=== PATIENT | female | born 1940 | race Caucasian/White ===

== ENCOUNTER → 2016-12-25 | Outpatient (CLI) | payer MEDICARE ==
[~2016-12-25] MED LIST: ASA CHILDREN'S81 MG PO; ASCORBIC ACID500 MG PO; COLACE-DPS100 MG PO; COZAAR DPS50 MG PO; FEOSOL-DPS325 MG PO; GLUCOSAMINE &1 EACH PO; LACTAID FAS9000 UNIT PO; NEURONTIN DPS100 MG PO; NORVASC5 MG PO; SENOKOT S1 TAB PO; TOPROL XL DPS50 MG PO; TYLENOL DPS325 MG PO; ULTRAM DPS50 MG PO; VITAMIN D1000 UNI1 PO; ZOCOR DPS10 MG PO; ZOLOFT DPS50 MG PO
== END | disposition home or self-care (01) ==
LOC: RAD.S 15:17
DX: I67.89 Other cerebrovascular disease (principal)

== ENCOUNTER 2016-12-31 14:19 | Inpatient (IN) | payer MEDICARE ==
[~2016-12-31] VITALS: Ht 157.5 cm; Wt 49.8 kg
--- NOTE | 2017-01-05 21:32 | NUR ---
DAY SHIFT SUMMARY: SEE OT NOTES & FIM FOR GROOMING, SHOWER, DRESSING AND SHOWER TRANSFER. MOD ASSIST OF 1 FOR TOILETING; MIN ASSIST OF 1 FOR ALL TRANSFERS EXCEPT SHOWER; MIN ASSIST OF 1 FOR AMBULATION W/ WALKER.
--- NOTE | 2017-01-14 18:14 | NUR ---
DAY SHIFT SUMMARY 01/13 AND : EATING IS SLOW RT BRACE AND OCCASIONALLY SWALLOWING DIFFICULTY; GROOMING IS SUPERVISED; MIN ASSIST FOR DRESSING, BED/CHAIR TRANSFERS, AMBULATION WITH WALKER; PT USES DEVICE FOR TOILETING AND TOILET TRANSFERS; MIN PROMPTING IN COMPREHENSION, EXPRESSION AND MEMORY; IS ON ANTIDEPRESSANT TO ASSIST SOCIAL INTERACTION; MINIMAL CUING FOR PROBLEM SOLVING
[2017-01-18] MEDS ORDERED: ZOLOFT DPS50 MG PO (12:48)
[2017-01-18] MEDS ORDERED: GLUCOSAMINE &1 EACH PO (12:49)
[2017-01-18] MEDS ORDERED: NORVASC5 MG PO (12:49)
[2017-01-18] MEDS ORDERED: ZOCOR DPS10 MG PO (12:49)
[2017-01-18] MEDS ORDERED: COZAAR DPS50 MG PO (12:49)
[2017-01-18] MEDS ORDERED: ASA CHILDREN'S81 MG PO (12:49)
[2017-01-18] MEDS ORDERED: VITAMIN D1000 UNI1 PO (12:50)
[2017-01-18] MEDS ORDERED: LACTAID FAS9000 UNIT PO (12:50)
[2017-01-18] MEDS ORDERED: FEOSOL-DPS325 MG PO (12:50)
[2017-01-18] MEDS ORDERED: TOPROL XL DPS50 MG PO (12:50)
[2017-01-18] MEDS ORDERED: ASCORBIC ACID500 MG PO (12:51)
[2017-01-18] MEDS ORDERED: NEURONTIN DPS100 MG PO (12:51)
[2017-01-18] MEDS ORDERED: TYLENOL DPS325 MG PO (12:52)
[2017-01-18] MEDS ORDERED: ULTRAM DPS50 MG PO (12:52)
[2017-01-18] MEDS ORDERED: SENOKOT S1 TAB PO (12:52)
[2017-01-18] MEDS ORDERED: COLACE-DPS100 MG PO (12:53)
--- NOTE | 2017-02-16 11:57 | DS ---
ADMIT: 12/31/2016 RM/LOC: [address] [facility] MR#: [id number] [facility] [address] [place], [place] [address] HONORIO WYNNE [address] [place] [address] General Discharge Summary SEX: F AGE: 76 : 1940 ADMISSION DATE: 12/31/2016 DISCHARGE DATE: 01/17/2017 DISCHARGE DIAGNOSES: Spinal cord dysfunction, nontraumatic 041211, quadriplegia, incomplete C1-4; M47.12, other spondylosis with myelopathy, cervical region, onset 12/27/2016, comorbid conditions, per initial H and P. Other diagnoses per hospital course below. HOSPITAL COURSE: Please see my initial H and P for details prior to transfer to the IRU. 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 [employer] shunt status in the past, severe postop pain. Postvoid residuals were within normal limits. Pain and bowel regimen was adjusted. Percocet and Valium were discontinued. OxyIR used for pain. Zoloft increased to 100 mg for pain and for better depression control. Zocor adjusted. Lab was monitored regularly. Mechanical means for DVT prophylaxis. Gabapentin used for pain as well, higher dose at night to help with insomnia. OxyIR and gabapentin adjusted for pain. Nucynta added to help with pain and to limit side effects. Zoloft decreased to 50 mg due to side effects. Lactate given for lactose intolerance. Lovenox started due to the difficulty she was having ambulating. Dietitian followed up optimize nutrition. Pharmacy followed to optimize medication management. Reglan and Zofran were given for nausea and vomiting. Postvoid residuals increased to 280, but then came down to 195 and 87. Reglan discontinued. Meclizine given for vertigo, dizziness, nausea, vomiting, history of Meniere's disease. UA with micro, no culture obtained due to leukocytosis. Feosol and vitamin C given for iron deficiency. PRNs given for constipation. Neurontin discontinued due to concern of side effects. Nucynta increased for pain control. Suppository after supper with warm water enema. Senokot S for constipation. Lovenox discontinued. She became ambulating again a good distance. Gabapentin restarted to help with pain control. Nucynta switched back to OxyIR, she was having no side effects and they resolved, ambulated regularly. Vitamin D replaced as it was deficient. Norvasc decreased to 5 mg. Blood pressure was nonspecific low blood pressure readings. Flonase for allergic rhinitis. Antivert discontinued p.r.n. again given for bowel movement. OxyIR switched to tramadol for pain control. Zoloft attempted increasing to 100 mg again for depression, melatonin for insomnia. Senokot S for constipation. [place]un[place] for ADMIT: 12/31/2016 RM/LOC: [address] [facility] MR#: [id number] [address] [id number] HONORIO WYNNE [address] [place] [address] General Discharge Summary SEX: F AGE: 76 : 1940 nausea and vomiting. Tylenol adjusted to give with tramadol. Senokot S for constipation. The patient was medically stable at the time of discharge. Please see IRU interdisciplinary discharge summary for details regarding progress in therapy. DISCHARGE DISPOSITION: Home with her with [facility] including RN, PT, OT, home health aide. Obtained a front wheeled walker. DISCHARGE MEDICATIONS: Please see discharge med rec. 1. Continue Feosol and vitamin C for 1 month. 2. She was given #60 of Ultram, two refills. FOLLOWUP: Dr. Luis Eduardo Watts on February 01, Dr. Sigala as regularly scheduled. Alok Smith MD/ [facility] JOB #: [id number] CC:
== END 2017-01-17 12:10 | disposition home health service (06) | DRG 560 ==
LOC: 6IRU 14:19
PROVIDERS: ADMIT Physical Medicine & Rehabilitation
PROC: F07Z9ZZ Gait Training/Functional Ambulation Treatment (ICD-10-PCS; principal; 2016-12-31)
PROC: F06ZDZZ Swallowing Dysfunction Treatment (ICD-10-PCS; principal; 2016-12-31)
PROC: F07Z5FZ Bed Mobility Treatment using Assistive, Adaptive, Supportive or Protective Equipment (ICD-10-PCS; principal; 2016-12-31)
PROC: F08Z0FZ Bathing/Showering Techniques Treatment using Assistive, Adaptive, Supportive or Protective Equipment (ICD-10-PCS; principal; 2016-12-31)
PROC: F07Z8FZ Transfer Training Treatment using Assistive, Adaptive, Supportive or Protective Equipment (ICD-10-PCS; principal; 2016-12-31)
PROC: F08Z2FZ Grooming/Personal Hygiene Treatment using Assistive, Adaptive, Supportive or Protective Equipment (ICD-10-PCS; principal; 2016-12-31)
DX: Z47.89 Encounter for other orthopedic aftercare (principal); D62 Acute posthemorrhagic anemia; I69.311 Memory deficit following cerebral infarction; I69.398 Other sequelae of cerebral infarction; R26.89 Other abnormalities of gait and mobility; R13.10 Dysphagia, unspecified; R27.8 Other lack of coordination; S14.159A Other incomplete lesion at unspecified level of cervical spinal cord, initial encounter; I10 Essential (primary) hypertension; G89.18 Other acute postprocedural pain; M81.0 Age-related osteoporosis without current pathological fracture; E78.5 Hyperlipidemia, unspecified; R26.2 Difficulty in walking, not elsewhere classified; F32.9 Major depressive disorder, single episode, unspecified; M62.81 Muscle weakness (generalized); E73.9 Lactose intolerance, unspecified; G47.00 Insomnia, unspecified; J30.9 Allergic rhinitis, unspecified; H81.09 Meniere's disease, unspecified ear; R11.2 Nausea with vomiting, unspecified; K59.00 Constipation, unspecified; E55.9 Vitamin D deficiency, unspecified; E61.1 Iron deficiency; R03.1 Nonspecific low blood-pressure reading; F41.9 Anxiety disorder, unspecified; X58.XXXA Exposure to other specified factors, initial encounter; T42.6X5A Adverse effect of other antiepileptic and sedative-hypnotic drugs, initial encounter; Y92.230 Patient room in hospital as the place of occurrence of the external cause; Z98.890 Other specified postprocedural states; Z98.1 Arthrodesis status; Z98.2 Presence of cerebrospinal fluid drainage device; Z87.820 Personal history of traumatic brain injury